=== PATIENT | male | born 1960 | race Caucasian/White ===

== ENCOUNTER 2019-11-07 21:02 | Emergency (ER) | payer SELFPAY ==
[~2019-11-07] VITALS: Ht 172.7 cm; Wt 88.5 kg
[2019-11-07 21:05] VITALS: BP 116/65
[2019-11-07] MEDS ORDERED: NACL 0.9% 1,000 ML IV ONE (21:10)
[2019-11-07 21:28] LABS: BASOPHILS % (AUTO) 1.4 % (0.0-2.0); EOSINOPHILS % (AUTO) 0.2 % (0.0-4.0); HEMATOCRIT 36.9 % (36-52); HEMOGLOBIN 12.5 g/dL (12.0-18.0); LYMPHOCYTES # (AUTO) 0.9 K/uL (2.0-11.5); LYMPHOCYTES % (AUTO) 38.6 % (20.5-51.1); MEAN CORPUSCULAR HEMOGLOBIN 34 pg (27-31); MEAN CORPUSCULAR HGB CONC 34 g/dL (33-37); MEAN CORPUSCULAR VOLUME 99.8 fL (80-94); MONOCYTES # (AUTO) 0.3 K/uL (0.8-1.0); MONOCYTES % (AUTO) 14.5 % (1.7-9.3); NEUTROPHILS % (AUTO) 45.3 % (42.2-75.2); PLATELET COUNT (AUTO) 113 K/uL (140-450); RED CELL DISTRIBUTION WIDTH 15.2 % (11.6-13.7); WHITE BLOOD COUNT (AUTO) 2.3 K/uL (4.8-10.8)
--- NOTE | 2019-11-07 21:40 | NUR ---
BIBA TO BED 11
[2019-11-07 21:44] LABS: ALBUMIN 3.5 g/dL (3.4-5.0); ANION GAP 16.1 (8-16); ASPARTATE AMINOTRANSFERASE 218 U/L (15-37); CARBON DIOXIDE 26.4 mmol/L (21-32); CHLORIDE 102 mmol/L (98-107); CREATININE 0.6 mg/dL (0.6-1.3); GFR ARICAN-AMERICAN 177 mL/min (>90); GLUCOSE 99 mg/dL (74-106); POTASSIUM 3.5 mmol/L (3.5-5.1); SODIUM SERUM 141 mmol/L (136-145); TOTAL BILIRUBIN 0.4 mg/dL (0.0-1.0); UREA NITROGEN, BLOOD 9 mg/dL (7-18)
[2019-11-07 21:45] LABS: ACETAMINOPHEN < 0.5 ug/ml (10-30); SALICYLATE < 2.8 mg/dL (2.8-20.0)
[2019-11-07 22:47] VITALS: BP 116/65
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
--- NOTE | 2019-11-07 23:25 | NUR ---
PT ASLEEP IN BED. RR EVEN AND UNLABORED.
--- NOTE | 2019-11-07 23:35 | NUR ---
PT IN BED RESTING, EYES CLOSED, VISIBLE CHEST RISE AND FALL. AROUSABLE TO VOICE. A/O X 2, TO NAME AND PLACE ONLY. NO LOC. NO FURTHER NEEDS. BED LOWEST AND LOCKED, RAILS UP X 2, HOB ELEVATED.
--- NOTE | 2019-11-08 01:00 | NUR ---
dr rdz evaluating patient at bedside.
--- NOTE | 2019-11-08 01:50 | NUR ---
Patient discharged with v/s stable. Written and verbal after care instructions given and explained. Patient verbalized understanding. Ambulatory with steady gait. All questions addressed prior to discharge. Advised to follow up with PMD. Pt provided with homeless meal and provided with correction resources.
== END 2019-11-08 01:50 | disposition home or self-care (01) ==
LOC: EDBD 21:02 → MED 21:02
DX: F10.129 Alcohol abuse with intoxication, unspecified (principal)
CPT/HCPCS: 36415; 80053; 85025; 99283; G0480; G0482; J7030